=== PATIENT | male | born 1990 | race Caucasian/White ===

== ENCOUNTER 2021-12-28 15:56 | Emergency (ER) | payer BC ==
[~2021-12-28] VITALS: Ht 182.9 cm; Wt 145.5 kg
[2021-12-28 16:18] VITALS: TEMP 98
[2021-12-28] MEDS ORDERED: CELEXA40 MG PO (16:21)
[2021-12-28] MEDS ORDERED: FLEXERIL 1010 MG/TAB PO (17:37)
[2021-12-28] MEDS ORDERED: NAPROSYN500 MG PO (17:37)
[2021-12-28 18:08] VITALS: BP 126/80; PULSE 85
== END 2021-12-28 18:00 | disposition home or self-care (01) ==
LOC: COL.ER 15:56
DX: S39.012A Strain of muscle, fascia and tendon of lower back, initial encounter (principal); Z28.310 Unvaccinated for COVID-19; X58.XXXA Exposure to other specified factors, initial encounter; Y92.096 Garden or yard of other non-institutional residence as the place of occurrence of the external cause
CPT/HCPCS: J1885

== ENCOUNTER 2024-04-18 09:57 | Emergency (ER) | payer BC ==
[~2024-04-18] VITALS: Ht 180.3 cm; Wt 120.5 kg
[~2024-04-18 09:57] MED LIST: CELEXA40 MG PO; FLEXERIL 1010 MG/TAB PO; FLOMAX 0.40.4 MG/CAP PO; NAPROSYN500 MG PO; ROXICODONE 55 MG/TAB PO; ZOFRAN ODT4 MG PO
[2024-04-18 10:03] VITALS: TEMP 98.5
[2024-04-18 10:39] VITALS: BP 132/66; PULSE 64
== END 2024-04-18 10:40 | disposition home or self-care (01) ==
LOC: COL.ER 09:57
DX: F41.1 Generalized anxiety disorder (principal); F41.0 Panic disorder [episodic paroxysmal anxiety]; Z87.891 Personal history of nicotine dependence; Z87.09 Personal history of other diseases of the respiratory system